=== PATIENT | male | born 1985 | race Caucasian/White ===

== ENCOUNTER → 2024-02-09 06:13 | Day surgery (SDC) | payer BC, SELFPAY | LOC: GI 06:13 | PROVIDERS: ATTENDING PHYSICIAN Internal Medicine | DX: Z12.11 Encounter for screening for malignant neoplasm of colon (principal); Z80.0 Family history of malignant neoplasm of digestive organs; K64.8 Other hemorrhoids | CPT/HCPCS: G0105 ==